=== PATIENT | female | born 1970 | race Native Hawaiian/Other Pacific Islander ===

== ENCOUNTER 2018-07-22 12:59 | Outpatient (CLI) | payer BC | END 2018-07-22 22:13 | disposition home or self-care (01) | LOC: MAMMO 12:59 | DX: Z12.31 Encounter for screening mammogram for malignant neoplasm of breast (principal) ==

== ENCOUNTER 2022-06-14 12:58 | Outpatient (CLI) | payer BC | END 2022-06-14 22:00 | disposition home or self-care (01) | LOC: MAMMO 12:58 | PROVIDERS: ATTEND Specialist | DX: Z12.31 Encounter for screening mammogram for malignant neoplasm of breast (principal) ==